=== PATIENT | female | born 1970 | race Caucasian/White ===

== ENCOUNTER 2023-05-08 13:26 | Emergency (ER) | payer BC ==
[2023-05-08] MEDS: Sodium Chloride 0.9% 10 ML Syringe FLUSH PRN ×4 (13:30→16:19)
[2023-05-08] MEDS ORDERED: Naloxone 0.4 MG/ML SDV IVPUSH PRN (13:34)
[2023-05-08] MEDS ORDERED: Morphine 2 MG/ML SYRINGE IVPUSH ONE (13:34)
[2023-05-08] MEDS ORDERED: Ondansetron 4 MG/2 ML SDV IVPUSH ONE (13:34)
[2023-05-08 13:41] LABS: BASOPHILS ABSOLUTE AUTO 0.02 K/uL (0.00-0.20); BASOPHILS PERCENT AUTO 0.2 % (0.0-2.0); EOSINOPHILS ABSOLUTE AUTO 0.25 K/uL (0.00-0.50); EOSINOPHILS PERCENT AUTO 3.1 % (0.0-5.0); HEMATOCRIT 42.1 % (34.0-46.0); HEMOGLOBIN 13.6 g/dL (11.7-15.5); LYMPHOCYTES ABSOLUTE AUTO 2.96 K/uL (0.50-3.50); LYMPHOCYTES PERCENT AUTO 36.1 % (10.0-50.0); MEAN CORPUSCULAR HEMOGLOBIN 29.8 pg (28.2-33.3); MEAN CORPUSCULAR HGB CONC 32.3 g/dL (31.7-36.0); MEAN CORPUSCULAR VOLUME 92.1 fL (84.0-98.0); MONOCYTES ABSOLUTE AUTO 0.81 K/uL (0.00-1.00); MONOCYTES PERCENT AUTO 9.9 % (2.0-14.0); NEUTROPHILS ABSOLUTE AUTO 4.15 K/uL (1.40-7.00); NEUTROPHILS PERCENT AUTO 50.7 % (45.0-80.0); PLATELET COUNT,PLT 257 K/uL (150-350); RED BLOOD CELL COUNT 4.57 M/uL (3.77-5.09); RED CELL DISTRIBUTION WIDTH 13.5 % (11.2-14.1); WHITE BLOOD CELL COUNT,WBC 8.2 K/uL (4.0-10.2)
[2023-05-08] MEDS ORDERED: Pantoprazole 40 MG Vial IVPUSH ONE (13:53)
[2023-05-08] MEDS ORDERED: Aluminum Hydroxide/Magnesium Hydroxide/Simethicone Susp 30 ML Cup PO ONE (14:01)
[2023-05-08 14:11] LABS: PROTHROMBIN TIME 9.5 SEC (9.0-11.1); PTT,PARTIAL THROMBOPLSTIN TIME 25.5 SEC (23.6-29.8)
[2023-05-08 14:16] LABS: ALBUMIN 4.1 g/dL (3.4-5.0); BILIRUBIN TOTAL 0.4 mg/dL (0.2-1.0); CALCIUM 8.9 mg/dL (8.5-10.1); CARBON DIOXIDE,CO2 26.2 mmol/L (21.0-32.0); CREATININE 0.91 mg/dL (0.51-1.17); EST CRCL DRUG DOSING (CG) 74.61 mL/min; MAGNESIUM 2.2 mg/dL (1.8-2.4); POTASSIUM,K 3.3 mmol/L (3.5-5.1); PROTEIN TOTAL,TP 7.3 g/dL (6.4-8.2); TSH ULTRASENSITIVE 7.504 mIU/mL (0.358-3.740)
[2023-05-08 14:24] LABS: ANION GAP 15.1 meq/L (7-15)
[2023-05-08] MEDS: Sodium Chloride 0.9% 1,000 ML IV SCH ×2 (14:28→16:17)
[2023-05-08] MEDS ORDERED: Potassium Chloride 10 MEQ Tab.ER PO ONE ×2 (14:31→16:00)
[2023-05-08 17:31] LABS: POTASSIUM,K 4.7 mmol/L (3.5-5.1)
== END 2023-05-08 18:30 | disposition home or self-care (01) ==
LOC: LL.ED 13:26
DX: R07.89 Other chest pain (principal); E03.9 Hypothyroidism, unspecified
CPT/HCPCS: 36415; 71045; 80053; 82550; 83605; 83735; 83880; 84132; 84443; 84484; 85025; 85379; 85610; 85730; 93005; 93010; 96361; 96374; 96375; 99284; 99285-25; A9270-GY; C9113; J2270; J2405; J3490; J7030